=== PATIENT | female | born 1985 | race Two or more races ===

== ENCOUNTER 2018-04-27 10:04 | Emergency (ER) | payer OTHER ==
[~2018-04-27] VITALS: Ht 165.1 cm; Wt 104.5 kg
[2018-04-27 10:31] VITALS: BP 132/97
[2018-04-27] MEDS ORDERED: ipratropium/albuterol 3ml nebule NEB ONE (13:30)
--- NOTE | 2018-04-27 13:35 | NUR ---
Pt ambulatory to xray.
--- NOTE | 2018-04-27 13:53 | NUR ---
RT at bedside for breathing tx.
[2018-04-27] MEDS ORDERED: ALBU6.7H INH (13:59)
[2018-04-27] MEDS ORDERED: dexamethasone 4mg tablet PO ONE (14:00)
--- NOTE | 2018-04-27 16:03 | NUR ---
LAB CALLED FLU A POSITIVE, CALLED [phone] PT CALLED BACK INFORMED LAB RESULTS, NO ADDITIONAL ORDERS FOR DISCHARGE RECEIVED FROM DR ROGERS.
== END 2018-04-27 14:12 | disposition home or self-care (01) ==
LOC: ER 10:05
DX: J09.X2 Influenza due to identified novel influenza A virus with other respiratory manifestations (principal); J45.909 Unspecified asthma, uncomplicated
CPT/HCPCS: 71046; 87502; 87503; 94640; 99284; J8540

== ENCOUNTER 2019-05-13 07:50 | Inpatient (IN) | payer OTHER ==
[~2019-05-13] VITALS: Ht 165.1 cm; Wt 102.4 kg
[2019-05-13] VITALS (17 sets, daily range): BP systolic 104–176; BP diastolic 60–99
[~2019-05-13 07:50] MED LIST: ALBU6.7H9 INH
[2019-05-13 08:13] LABS: BASOPHILS # (AUTO) 0.1 X10'3 (0-0.2); BASOPHILS % (AUTO) 0.7 % (0-1); EOSINOPHILS # (AUTO) 0.1 X10'3 (0-0.9); EOSINOPHILS % (AUTO) 0.6 % (0-6); HEMATOCRIT 35.2 % (35.0-45.0); HEMOGLOBIN 11.2 g/dl (12.0-16.0); LYMPHOCYTES # (AUTO) 1.3 X10'3 (1.1-4.8); LYMPHOCYTES % (AUTO) 16.1 % (21-51); MEAN CORPUSCULAR HEMOGLOBIN 24.5 PG (27.0-31.0); MEAN CORPUSCULAR HGB CONC 31.8 g/dL (33.0-36.5); MEAN PLATELET VOLUME 8.5 FL (7.4-10.4); MONOCYTES # (AUTO) 0.4 X10'3 (0-0.9); MONOCYTES % (AUTO) 4.6 % (2-12); NEUTROPHILS # (AUTO) 6.5 X10'3 (1.8-7.7); PLATELET COUNT 301 X10'3 (140-440); RED BLOOD COUNT 4.57 X10'6 (4.20-5.60); RED CELL DISTRIBUTION WIDTH 16.5 % (11.5-14.5); WHITE BLOOD COUNT 8.3 X10'3 (4.5-11.0)
[2019-05-13] MEDS ORDERED: famotidine/PF 10 mg/ml inj IV ONE ×2 (08:15→17:08)
[2019-05-13] MEDS ORDERED: ondansetron/PF 4mg/2ml inj IV ONE (08:15)
[2019-05-13] MEDS ORDERED: pantoprazole 40 MG vial IV ONE (08:15)
[2019-05-13 08:16] LABS: CLARITY,URINE CLEAR (Clear); COLOR,URINE YELLOW (Yellow); GLUCOSE, URINE NEGATIVE (Neg); KETONES,URINE NEGATIVE (Neg); LEUKOCYTE ESTERASE ,URINE NEGATIVE (Neg); NITRITES, URINE NEGATIVE (Neg); OCCULT BLOOD,URINE LARGE (Neg); PROTEIN,URINE NEGATIVE (Neg); URINE HCG NEGATIVE (NEG); UROBILINOGEN,URINE 0.2 E.U/dL (0.2-1.0)
[2019-05-13 08:32] LABS: UA COLLECTION TYPE CLN CATCH MIDSTREAM
[2019-05-13 08:38] LABS: RBC,URINE 50-100 /HPF (0-2); WBC,URINE 0-4 /HPF (0-4)
[2019-05-13 08:39] LABS: BACTERIA,URINE FEW /HPF (Neg); MUCUS STRANDS NONE SEEN /LPF (Neg); SQUAMOUS EPITHELIAL CELL,UR MODERATE /LPF (FEW)
[2019-05-13] MEDS ORDERED: morphine 4 MG/ML inj SYRINge IV ONE (08:50)
[2019-05-13] MEDS ORDERED: morphine 10mg/ml inj. IV ONE (09:00)
[2019-05-13] MEDS ORDERED: normal saline 1000ml 1,000 ML IV ONE (09:00)
[2019-05-13 09:35] LABS: ALANINE AMINOTRANSFERASE 21 U/L (12-78); ALBUMIN 3.7 G/DL (3.4-5.0); ALBUMIN/GLOBULIN RATIO 0.9 (1.1-1.5); ALKALINE PHOSPHATASE 106 IU/L (46-116); ANION GAP 6 (8-16); ASPARTATE AMINO TRANSFERASE 16 U/L (10-37); BILIRUBIN,TOTAL 0.3 MG/DL (0.1-1.0); BLOOD UREA NITROGEN 11 MG/DL (7-18); BUN/CREATININE RATIO 13.8 (6.6-38.0); CALCIUM 8.8 MG/DL (8.5-10.1); CHLORIDE 106 MMOL/L (99-107); GLUCOSE 108 MG/DL (70-104); POTASSIUM 4.2 MMOL/L (3.5-5.1); SODIUM 139 MMOL/L (135-145); TOTAL CARBON DIOXIDE 27.3 MMOL/L (24-32); TOTAL PROTEIN 7.9 G/DL (6.4-8.2); eGFR 83 ML/MIN
[2019-05-13 09:37] LABS: LIPASE 164 U/L (73-393)
[2019-05-13 09:43] LABS: PARTIAL THROMBOPLASTIN TIME 27 SECONDS (22-32)
[2019-05-13] MEDS ORDERED: morphine 2 MG/ML inj. syringe IV PRN ×2 (10:00→16:45)
[2019-05-13] MEDS ORDERED: ondansetron/PF 4mg/2ml inj IV PRN ×2 (10:00→16:45)
[2019-05-13] MEDS ORDERED: mag hydrox/Alum hydrox/simeth 30ml oral suspension PO PRN (10:00)
[2019-05-13] MEDS ORDERED: magnesium hydroxide 30ml (MOM) UD suspension PO PRN (10:00)
[2019-05-13] MEDS ORDERED: acetaminophen 325mg tablet PO PRN (10:00)
[2019-05-13] MEDS: normal saline 1000ml 1,000 ML IV SCH ×2 (10:18→20:05)
--- NOTE | 2019-05-13 11:25 | NUR ---
ATTEMPTED TO CALL REPORT TO RECEIVING RN ON SURGICAL. INFORMED THAT A RN HAD NOT BEEN ASSIGNED TO THE PT AND THAT THEY WILL HAVE THE ASSIGNED RN CALL FOR REPORT
--- NOTE | 2019-05-13 11:50 | NUR ---
DIAGNOSTIC CARDIAC SONOGRAPHER NOT AVAILABLE AND WILL CALL BACK IN 5 MIN.
--- NOTE | 2019-05-13 12:06 | NUR ---
HAND FUNNEL COATER AND CHG RN NOT AVAILABLE TO TAKE REPORT. ER CHG RN NOTIFIED
[2019-05-13] MEDS: morphine 2 MG/ML inj. syringe IV PRN ×2 (15:25→22:58)
[2019-05-13] MEDS ORDERED: BUPIVAcaine/PF 2.5 mg/ml (0.25%) 30ml vial ONE (15:28)
[2019-05-13] MEDS ORDERED: ceFAZolin 1000mg inj ONE (15:28)
--- NOTE | 2019-05-13 16:00 | NUR ---
patient prepared for surgery. all cares given. patient picked up for surgery. report called to
[2019-05-13] MEDS ORDERED: ringers solution, lacted 1,000 ML IV SCH (16:41)
[2019-05-13] MEDS ORDERED: sevoflurane 250ml liquid IH ONE (16:45)
[2019-05-13] MEDS ORDERED: proCHLORperazine 10 MG/2 ml inj IV PRN (16:45)
[2019-05-13] MEDS ORDERED: morphine 4 MG/ML inj SYRINge IV PRN (16:45)
[2019-05-13] MEDS ORDERED: meperidine/PF 25mg/ml syringe IV PRN ×3 (16:45)
[2019-05-13] MEDS ORDERED: acetaminophen 1,000mg/100ml IV 100 ML IV PRN (16:45)
[2019-05-13] MEDS ORDERED: ketorolac trometh. 30mg/ml inj. ONE (16:45)
[2019-05-13] MEDS ORDERED: midazolam 2 mg/2 ml injection ONE (16:48)
[2019-05-13] MEDS ORDERED: fentaNYL /PF 50mcg/ml 5ml ampule ONE (16:48)
[2019-05-13] MEDS ORDERED: LIDOcaine 4% LTA kit 4ml solution TP ONE (16:51)
[2019-05-13] MEDS ORDERED: propofol inj 20 ML IV ONE (17:03)
[2019-05-13] MEDS ORDERED: LIDOcaine 2% (20mg/ml) 5ml vial ONE (17:03)
[2019-05-13] MEDS ORDERED: ceFOXitin 1000 MG inj ONE ×2 (17:03)
[2019-05-13] MEDS ORDERED: rocuronium 10mg/ml inj IV ONE (17:03)
[2019-05-13] MEDS ORDERED: dexamethasone sod phosphate 4mg/ml inj. ONE (17:13)
[2019-05-13] MEDS ORDERED: ondansetron/PF 4mg/2ml inj ONE (17:13)
[2019-05-13] MEDS ORDERED: LIDOcaine 2% 5ml jelly ONE (17:14)
[2019-05-13] MEDS ORDERED: neostigmine methylsulfate 1 MG/ML 10ml vial ONE (17:55)
[2019-05-13] MEDS ORDERED: glycopyrrolate 0.2mg/ml inj ONE (17:55)
[2019-05-13] MEDS ORDERED: acetaminophen 1,000mg/100ml IV 100 ML IV ONE (17:56)
--- NOTE | 2019-05-13 18:03 | NUR ---
Problems reprioritized. Patient report given, questions answered & plan of care reviewed with wilian TRISTAN patient is still in Recovery at time of report.
--- NOTE | 2019-05-13 18:05 | NUR ---
Received from OR via BED , accompanied by Anesthesiologist DR NIELSON and report given by Anesthesiolgist. PATIENT WAKING UP, DENIES PAIN, V/S WNL, NEUROVASCULAR CHECKS INTACT, 20G PIV LUE, SCD ON, BANDAIDS TO LAP SIGHTS OF ABDOMEN CDI.
--- NOTE | 2019-05-13 18:35 | NUR ---
Received report from KUN Ring. Patient still in recovery room.
--- NOTE | 2019-05-13 18:38 | NUR ---
Received report from KUN Garcia. Awaiting patient arrival to the floor.
--- NOTE | 2019-05-13 18:45 | NUR ---
PATIENT WAKING UP, C/O MODERATE PAIN SEE EMAR, V/S WNL, NEUROVASCULAR CHECKS INTACT, 20G PIV LUE, SCD ON, BANDAIDS TO LAP SIGHTS OF ABDOMEN CDI. PATIENT TAKEN TO 356A WITH ALL BELONGINGS AND HOOKED UP TO MONITORS IN ROOM AND REPORT GIVEN TO RN WHO HAS TAKEN OVER PATIENT CARE.
--- NOTE | 2019-05-13 19:10 | NUR ---
Patient arrived to the floor on hospital bed. Placed in room 356A. Patient slightly drowsy and alert on room air, in no apparent distress. Family at bedside. Call light and items of frequent use within reach. Will continue to monitor.
--- NOTE | 2019-05-13 21:46 | NUR ---
Reported off to KUN Gutierres. Patient resting comfortably on room air, 16 even and unlabored respirations. In no apparent distress. Significant other at bedside.
--- NOTE | 2019-05-13 21:46 | NUR ---
Patient in room [facility]. I have received report from Brittney TRISTAN and had the opportunity to ask questions and assume patient care. Pt asleep with boyfriend at bedside. Post-op vitals in place, VSS, NS running at 100/mls/hr. No signs of distress, will continue to monitor.
[2019-05-14] VITALS: BP 117/80
--- NOTE | 2019-05-14 06:09 | NUR ---
Problems reprioritized. Patient report given, questions answered & plan of care reviewed with Kelsey TRISTAN. Pt is sitting up in bed playing on her phone. No signs of distress at this time.
--- NOTE | 2019-05-14 06:19 | NUR ---
Patient in room [facility]. I have received report from KUN Gutierres and had the opportunity to ask questions and assume patient care.
[2019-05-14 07:00] VITALS: BP 140/82
[2019-05-14] MEDS: normal saline 1000ml 1,000 ML IV SCH (07:57)
[2019-05-14 10:36] LABS: BASOPHILS % (AUTO) 0.4 % (0-1); EOSINOPHILS % (AUTO) 0.2 % (0-6); HEMATOCRIT 30.8 % (35.0-45.0); HEMOGLOBIN 9.8 g/dl (12.0-16.0); LYMPHOCYTES # (AUTO) 0.7 X10'3 (1.1-4.8); LYMPHOCYTES % (AUTO) 8.3 % (21-51); MEAN CORPUSCULAR HEMOGLOBIN 24.5 PG (27.0-31.0); MEAN CORPUSCULAR HGB CONC 31.8 g/dL (33.0-36.5); MONOCYTES # (AUTO) 0.5 X10'3 (0-0.9); MONOCYTES % (AUTO) 5.4 % (2-12); NEUTROPHILS # (AUTO) 7.3 X10'3 (1.8-7.7); NEUTROPHILS % (AUTO) 85.7 % (42-75); PLATELET COUNT 240 X10'3 (140-440); RED CELL DISTRIBUTION WIDTH 16.7 % (11.5-14.5); WHITE BLOOD COUNT 8.5 X10'3 (4.5-11.0)
[2019-05-14 11:00] VITALS: BP 119/71
[2019-05-14] MEDS ORDERED: HYDR-4383 PO (11:20)
--- NOTE | 2019-05-14 13:17 | NUR ---
Pt discharged to home with all belongings, in private vehicle, accompanied by family. Discharge instructions and medications reviewed. New prescription for norco e-scripted to [facility]. Pt instructed to follow up with Dr Alcocer in 1 week, and to contact his office with any concerns. IV DC'd, cannula intact. Pt escorted at 1256 to front lobby by PCT.
== END 2019-05-14 12:56 | disposition home or self-care (01) | DRG 419 ==
LOC: ER 07:51 → ED HOLD 09:59 → SUR 3N 12:34
PROVIDERS: ADMIT Family Medicine; ATTEND Family Medicine
PROC: 0FT44ZZ Resection of Gallbladder, Percutaneous Endoscopic Approach (ICD-10-PCS; principal; 2019-05-13 16:50)
DX: K80.00 Calculus of gallbladder with acute cholecystitis without obstruction (principal); J45.909 Unspecified asthma, uncomplicated; F12.90 Cannabis use, unspecified, uncomplicated; E66.9 Obesity, unspecified; Z68.37 Body mass index [BMI] 37.0-37.9, adult
CPT/HCPCS: 96374; 96375; 99285; Z7506; Z7508; 36415; 76700; 80053; 81001; 81025; 82948; 83690; 85025; 85610; 85730; 87081; A4215; A4618; A7000; C9113; G0378; J0131; J0690; J0694; J1100; J1885; J2001; J2175; J2250; J2270; J2405; J2704; J2710; J3010; J3490; J7030; J7120